=== PATIENT | female | born 1985 | race Caucasian/White ===

== ENCOUNTER → 2024-07-10 09:15 | Outpatient (REF) | payer BC, SELFPAY | LOC: HWRCS 09:15 | PROVIDERS: ATTENDING PHYSICIAN Internal Medicine; FAMILY PHYSICIAN Student in an Organized Health Care Education/Training Program | DX: R00.0 Tachycardia, unspecified (principal); I49.8 Other specified cardiac arrhythmias | CPT/HCPCS: 93306 ==